=== PATIENT | female | born 1945 | race Caucasian/White ===

== ENCOUNTER 2017-09-23 08:08 | Day surgery (SDC) | payer OTHER ==
[~2017-09-23] VITALS: Ht 203.2 cm; Wt 111.6 kg
[~2017-09-23 08:08] MED LIST: ACID REDUCER 1150 MG PO; ALEN35 PO; CALCIUM; FISH1000 PO; GINKO BILOBA PO; HYDACE5 PO; HYDACE7.5 PO; L-CARNITINE PO; LEVSOD150 PO; LOVENOX SQ; MILK THISTLE PO; OXYACE5T PO; PANT40 PO; RANI150 PO; VITAMIN B12; WARF5 PO; ZOLP10 PO; [UNRECOGNIZED DRUG - OTHER] PO
== END 2017-09-23 10:09 | disposition home or self-care (01) ==
LOC: ORSCSDS 08:08
DX: K22.70 Barrett's esophagus without dysplasia (principal); K31.7 Polyp of stomach and duodenum; K44.9 Diaphragmatic hernia without obstruction or gangrene; E66.9 Obesity, unspecified; I82.90 Acute embolism and thrombosis of unspecified vein; Z87.891 Personal history of nicotine dependence; Z68.37 Body mass index [BMI] 37.0-37.9, adult; Z79.899 Other long term (current) drug therapy
CPT/HCPCS: 88305; 88342; J7120

== ENCOUNTER 2020-04-13 09:53 | Day surgery (SDC) | payer MEDICARE ==
[~2020-04-13] VITALS: Ht 172.7 cm; Wt 106.9 kg
[~2020-04-13 09:53] MED LIST changes: +FAMO20 PO; +LEVSOD112 PO; +METO50ER PO; +Norco 5-325 Ta1 EACH PO; +OMEP20ER PO; +SPIR25 PO; +TORSE20 PO
[2020-04-13] MEDS ORDERED: SPIR50 (10:27)
[2020-04-13] MEDS ORDERED: MELA3 (10:27)
[2020-04-13] MEDS ORDERED: TORSE20 (10:28)
[2020-04-13] MEDS ORDERED: GINKGO60 MG (10:29)
[2020-04-13] MEDS ORDERED: CENTRUM SILVER1 EAC2 (10:29)
[2020-04-13] MEDS ORDERED: Milk Thistle175 M1 (10:29)
[2020-04-13] MEDS ORDERED: TURMERIC500 M2 (10:30)
[2020-04-13] MEDS ORDERED: CODACE30 (10:30)
== END 2020-04-13 12:45 | disposition home or self-care (01) ==
LOC: ORSCSDS 09:53
PROVIDERS: Surgery
PROC: 0DB48ZX Excision of Esophagogastric Junction, Via Natural or Artificial Opening Endoscopic, Diagnostic (ICD-10-PCS; principal; 2020-04-13 11:15)
PROC: 0DB78ZX Excision of Stomach, Pylorus, Via Natural or Artificial Opening Endoscopic, Diagnostic (ICD-10-PCS; principal; 2020-04-13 11:15)
DX: K22.70 Barrett's esophagus without dysplasia (principal); K21.9 Gastro-esophageal reflux disease without esophagitis; K44.9 Diaphragmatic hernia without obstruction or gangrene; Z87.891 Personal history of nicotine dependence; Z86.718 Personal history of other venous thrombosis and embolism; Z79.899 Other long term (current) drug therapy; Z85.3 Personal history of malignant neoplasm of breast; Z85.850 Personal history of malignant neoplasm of thyroid
CPT/HCPCS: 88305; 88342; J2704; J7120

== ENCOUNTER → 2020-11-14 | Outpatient (CLI) | payer MEDICARE ==
[~2020-11-14] MED LIST changes: +CENTRUM SILVER1 EAC2; +CODACE30; +GINKGO60 MG; +MELA3; +Milk Thistle175 M1; +SPIR50; +TORSE20; +TURMERIC500 M2
== END | disposition home or self-care (01) ==
LOC: LAB SHORT 12:47 → PLD 12:47
DX: L57.0 Actinic keratosis (principal); D04.61 Carcinoma in situ of skin of right upper limb, including shoulder
CPT/HCPCS: 88305